=== PATIENT | male | born 1935 ===

== ENCOUNTER 2022-10-05 09:40 | Inpatient (IN) | payer OTHER ==
[~2022-10-05] VITALS: Ht 170.2 cm; Wt 68.0 kg
[~2022-10-05 09:40] MED LIST: COZAAR100 MG; SYMBICORT 16010.2 GM IH; SYNTHROID137 MCG
== END 2022-10-11 23:46 | disposition home or self-care (01) | DRG 682 ==
LOC: ER 09:40 → EDBD 18:50 → MEDI 18:50 → SURH 18:50 → MEDI 10-07 13:51
PROVIDERS: ADMIT Internal Medicine; ATTEND Internal Medicine
PROC: 4A12X4Z Monitoring of Cardiac Electrical Activity, External Approach (ICD-10-PCS; principal; 2022-10-05)
PROC: B246ZZZ Ultrasonography of Right and Left Heart (ICD-10-PCS; 2022-10-05)
PROC: 3E0F7SF Introduction of Other Gas into Respiratory Tract, Via Natural or Artificial Opening (ICD-10-PCS; 2022-10-05)
PROC: BW21ZZZ Computerized Tomography (CT Scan) of Abdomen and Pelvis (ICD-10-PCS; 2022-10-06)
DX: I13.10 Hypertensive heart and chronic kidney disease without heart failure, with stage 1 through stage 4 chronic kidney disease, or unspecified chronic kidney disease (principal); I21.4 Non-ST elevation (NSTEMI) myocardial infarction; N17.8 Other acute kidney failure; N39.0 Urinary tract infection, site not specified; N20.1 Calculus of ureter; I24.9 Acute ischemic heart disease, unspecified; R74.8 Abnormal levels of other serum enzymes; N18.9 Chronic kidney disease, unspecified; E86.0 Dehydration; K59.09 Other constipation; E03.9 Hypothyroidism, unspecified